=== PATIENT | female | born 1990 | race Caucasian/White ===

== ENCOUNTER 2022-01-12 08:02 | Day surgery (SDC) | payer OTHER, SELFPAY ==
[2022-01-12] VITALS (10 sets, daily range): BP systolic 113–158; BP diastolic 69–104; PULSE 63–78; RESP 16–18; TEMP 36.6–36.7; O2SAT 92–99; BMI 39.3
--- NOTE | 2022-01-12 | SEP_PTH ---
PATIENT: DREW LEE LOC: [facility] – [place] U#:[id number] AGE/SX: 31/F ROOM: RE01/12/[address]: Dr. Ramirez Leon MD : 1990 BED: DIS: 01/12/2022 SPEC #: [id number] RECD: 01/12/22 11:27 STATUS: CARLOS ROSY #: [id number] SHELDON: 01/12/22 00:[address]: Ramirez Leon DEPT: SURGICAL PATHOLOGY RECD BY: Zion Farris ENTERED: 01/12/22 11:45 SP TYPE: SEPTUM OTHR DR: NOEMY Plaza Tissues: A - Nasal septum, NOS B - Ethmoid sinus, NOS C - Ethmoid sinus, NOS Procedures: Decalcification bone/plaque Surgery Specimen Level III Surgery Specimen Level IV HEADER OPERATION: Endo, nasal, ethmoid, septoplasty PRE-OP DIAGNOSIS: Chronic sinusitis, chronic maxillary and ethmoid sinusitis, deviated nasal septum TISSUE SUBMITTED: A ? Septum and bone, B ? Left sinus contents, C ? Right sinus contents MICROSCOPIC DIAGNOSIS A. Septum and bone: Fragments of cartilage and bone, clinically deviated nasal septum. B. Left sinus contents: Fragments of respiratory mucosa with chronic inflammation and bone. C. Right sinus contents: Fragments of respiratory mucosa with chronic inflammation and bone. SUJIT:iggy 01/15/2022 MICROSCOPIC DESCRIPTION Slides are reviewed. GROSS DESCRIPTION A - Received in fixative is one container labeled with the patient's name and designated septum and bone. The specimen consists of multiple fragments of bone and cartilage that in aggregate measure 3 x 2 x 0.3 cm. The specimen is totally submitted in one cassette after decalcification. B - Received in fixative is one container labeled with the patient's name and designated left sinus contents. The specimen consists of multiple irregular fragments of lott-pink soft tissue mixed with possible fragments of bone that in aggregate measure 2.5 x 1 x 0.2 cm. The specimen is totally submitted in one cassette after decalcification. C - Received in fixative is one container labeled with the patient's name and designated right sinus contents. The specimen consists of multiple irregular fragments of hemorrhagic soft tissue mixed with possible fragments of bone that in aggregate measure 5 x 3 x 0.2 cm. The specimen is totally submitted in two cassettes after decalcification. / SUJIT:iggy 01/12/2022 TC:3 CPT: 83171 x2, 52846, 41654 x3
[2022-01-12] MEDS: Lactated Ringers 1,000 ML 15 ML IV ×2 (08:15→10:30)
[2022-01-12] MEDS: Oxymetazoline 0.05% 1 SPRAY SPRAY.BTL 2 SPRAY NASAL (08:35)
[2022-01-12 08:37] LABS: Internal QC Validated? YES +Cl - CLEAR BKGD; Pregnancy, Urine Negative Negative
--- NOTE | 2022-01-12 08:42 | DS.PCM_ITS ---
Providers Primary Care Physician: NOEMY Plaza Reason For Visit: ENDOSCOPIC ETHMOID MAX ANTROS SEPTO SHERLYN BILAT Medications at Discharge Home Medications albuterol 90 mcg INHALATION PRN PRN 01/06/22 alprazolam 0.5 mg PO PRN PRN 01/06/22 cetirizine-pseudoephedrine [Zyrtec-D] 1 tab PO BID 01/06/22 escitalopram oxalate [Lexapro] 15 mg PO DAILY 01/06/22 fluticasone furoate-vilanterol [Breo Ellipta] 1 inh INHALATION DAILY 01/06/22 fluticasone propionate [Flonase] 2 spray INTRANASAL BID 01/06/22 Weight / BMI Weight Weight: 104 kg Body Mass Index (BMI) 39.3 ABG / Lab / Microbiology Data Laboratory: Laboratory Results - last 24 hr 01/12/22 08:22: Urine Test Negative D/C Instructions Discharge Diet: No restrictions Additional Activity Instructions: No nose blowing. Start saline irrigation on 01/13/22. Irrigate 4x/day. Please Follow Up With: Ramirez Leon MD When: 8 days Meaningful Use Info Meaningful Use Diagnoses (Choose all that apply): None applicable Discharge Plan Admission Attending Provider: Ramirez Leon Primary Care Provider: Dari Dorman Discharge Orders/Prescriptions Prescriptions: No Action cetirizine-pseudoephedrine [Zyrtec-D] 5-120 mg Tablet Extended Release 12 Hr 1 tab PO BID RF: 0 albuterol 90 mcg/actuation Aerosol 90 mcg INHALATION PRN PRN (Reason: Wheezing) RF: 0 fluticasone propionate [Flonase] 50 mcg/actuation [place],Suspension 2 spray INTRANASAL BID RF: 0 escitalopram oxalate [Lexapro] 10 mg Tablet 15 mg PO DAILY RF: 0 fluticasone furoate-vilanterol [Breo Ellipta] 100-25 mcg/dose Blister With Device 1 inh INHALATION DAILY RF: 0 alprazolam 0.5 mg tablet 0.5 mg PO PRN PRN (Reason: Anxiety) RF: 0
[2022-01-12] MEDS: Mupirocin Ointment 22gm Tube 1 APPLIC (10:15)
[2022-01-12] MEDS: Oxymetazoline 0.05% 1 SPRAY SPRAY.BTL 15 SPRAY (10:15)
[2022-01-12] MEDS: Lidocaine 1% /Epi 1:100 (20ml) 20 ML Vial (10:15)
--- NOTE | 2022-01-12 10:52 | OP.PCM_ITS ---
Report of Operation Date of Procedure: 01/12/22 Pre-Operative Diagnosis: chronic sinusitis deviated septum Post-Operative Diagnosis: same Surgery/Procedure Performed:: bilateral total ethmoidectomy bilateral maxillary antrostomy septoplasty Surgeon: Ramirez Leon Type of Anesthesia: General Anesthesiologist: Al Leung Estimated Blood Loss (mL): 30 cc Description of Procedure: The patient was taken to the operating room on 01/12/2022. The patient was placed in the supine position on the operating table. The patient was given sufficient general endotracheal anesthesia. The head of bed was elevated 30 degrees. 0 and 30 degrees rigid nasal endoscopes were used throughout the entire case. The middle turbinate uncinate process and septum were injected with 1% lidocaine with epinephrine bilaterally. The left middle turbinate was medialized with a [place] Joseph elevator. A ball-tipped sinus seeker was placed into the patient's maxillary sinus. The maxillary antrostomy was created with a backbiter. The uncinate process was taken down using a microdebrider. Next, the ethmoid bulla was opened with a small curette. Anterior and posterior ethmoidectomy were then carried out using curette, sinus shaver and 45 degree Blakesley Nathalie forceps. I then placed Afrin pledgets into the sinonasal cavity. A right hemitransfixion incision was made with a 15 blade. The mucoperichondrial was elevated off of the left-hand side of the septum with a [place] Joseph elevator. An anterior and posterior tunnel were created in this fashion. The bony cartilaginous junction was with a [place] Joseph elevator. A posterior tunnel was created on the right side developed by elevating the mucoperichondrial with a [place] Joseph. The deviated portions of bony septum removed using open Mario-Eulalia forceps. Afrin was used for hemostasis as well as Dominga powder. The hemitransfixion incision was closed with 4-0 chromic. Next attention was turned to the right side. The middle turbinate was medialized with a [place] elevator. The uncinate process was taken down using a sinus shaver. In doing so, the maxillary antrostomy was created. The ethmoid bulla was opened with a small curette. Anterior posterior ethmoidectomy were then carried out using a sinus shaver curette and Blakesley Nathalie forceps. Hemostasis was then achieved using Afrin pledgets. The pledgets were then removed bilaterally and Dominga powder was applied bilaterally for absolute hemostasis. Krishna nasal splints were applied to each side of the septum and sewn through and through with 3-0 silk.The procedure was then terminated. The patient was then awoken and brought to the recovery room in stable condition blood loss less than 30 cc replacement none. Sponge, needle, instrument count were correct at the end of the procedure.
[2022-01-12] MEDS: HYDROcodone Bitartrate/Apap 5/325 Tablet PO (13:22)
== END 2022-01-12 14:09 | disposition home or self-care (01) ==
LOC: SDC 08:05 → AC 08:07
PROVIDERS: Anesthesiology; PCP Physician Assistant; Referring Provider Otolaryngology; Visit Provider Otolaryngology
PROC: (CPT 30520; principal; 2022-01-12 09:00)
DX: J32.8 Other chronic sinusitis (principal); J34.2 Deviated nasal septum; J32.0 Chronic maxillary sinusitis; J32.2 Chronic ethmoidal sinusitis; F41.9 Anxiety disorder, unspecified; J45.909 Unspecified asthma, uncomplicated; Z79.899 Other long term (current) drug therapy
CPT/HCPCS: 31255; 31267; 30520; 00160; 81025; 88304; 88305; 88311; J7120; J2405

== ENCOUNTER 2022-07-16 08:43 | Day surgery (SDC) | payer OTHER, SELFPAY ==
--- NOTE | 2022-07-15 15:18 | PCM.HP.BLA ---
History and Physical Date of Admission: 07/16/22 Pre-Op History and Physical ? HPI: The patient is a 32 year old female presenting for discussion regarding AUB. Was on ocps- wishes to stop and Mirena IUD not covered and too expensive at this time- does not wish to continue with hormonal therapy. Would like to consider surgical intervention. ? pre-operative visit. She is scheduled for Hysteroscopy D&C and Quin ablation, for AUB on 07/16/22. Procedure discussed along with risks, benefits and complications. Other alternatives discussed for management. Consent form signed? Yes. ? ? PAST MEDICAL HISTORY PAST MEDICAL HISTORY Diagnosis Date ? Abnormal Pap smear of cervix 2009 ? Asthma ? ? SPORTS INDUCED ? Varicosities ? ? ? PAST SURGICAL HISTORY PAST SURGICAL HISTORY Procedure Laterality Date ? APPENDECTOMY ? ? ? AND REMOVAL OF PORTION OF SMALL INTESTINE ? DELIVERY ONLY ? 01/18/13 ? failed induction ? MYRINGOTOMY ASPIR&/EUSTACHIAN TUBE NFLTJ ANES ? ? ? Myringotomy/tubesX2 ? TONSILLECTOMY PRIMARY/SECONDARY <AGE 12 ? ? ? Tonsillectomy ? TUBAL LIGATION, ? ? ? done at time of section ? ? ? CURRENT MEDICATIONS Current Outpatient Medications Medication Sig Dispense Refill ? fluoxetine HCl (PROZAC ORAL) Take by mouth. ? ? ? Drospirenone-Ethinyl Estradiol (SKYLER, 28,) 3-0.03 mg per tablet Take 1 tablet by mouth once daily. (Patient not taking: Reported on 02/17/2022 ) 84 tablet 3 ? escitalopram oxalate (LEXAPRO) 10 mg tablet Take 10 mg by mouth once daily. (Patient not taking: Reported on 07/01/2022) ? ? ? fluticasone-vilanterol (BREO ELLIPTA) 100-25 mcg/dose inhaler Inhale 1 Inhalation as instructed once daily. 60 Each 11 ? cetirizine HCl (ZYRTEC ORAL) Take by mouth. ? ? ? ALPRAZolam (XANAX) 0.5 mg tablet take one-half to one tablet BY MOUTH TWICE DAILY FOR ANXIETY FOR 30 DAYS ? 0 ? albuterol (PROVENTIL) 2.5 mg /3 mL (0.083 %) nebulizer solution Use 3 mL via nebulizer four times daily. Inhale by nebulizer over 5-15 minutes 120 Vial 11 ? MONTELUKAST SODIUM (SINGULAIR ORAL) Take by mouth. (Patient not taking: Reported on 07/01/2022) ? ? ? albuterol HFA (PROAIR HFA) 90 mcg/actuation inhaler Inhale 2 Puffs as instructed. ? ? ? FLUTICASONE PROPIONATE (FLONASE NASAL) Use in the nose. ? ? ? No current facility-administered medications for this visit. ? ? ALLERGIES: Adhesive Tape (Rosins) and Amoxicillin ? PERSONAL HISTORY: SOCIAL HISTORY Social History ? Tobacco Use ? Smoking status: Never ? Smokeless tobacco: Never Vaping Use ? Vaping Use: Never used Substance Use Topics ? Alcohol use: Yes ? ? Comment: occasional ? Drug use: No ? FAMILY HISTORY: FAMILY HISTORY FAMILY HISTORY Problem Relation Age of Onset ? Thyroid Mother ? ? Hypertension Father ? ? Thyroid Maternal Grandmother ? ? Arthritis Paternal Grandfather ? ? Stroke Paternal Grandfather ? ? other (ilcerative colitis) Paternal Grandfather ? ? Breast Cancer Paternal Grandmother ? ? Thyroid Maternal Aunt ? ? ? REVIEW OF SYMPTOMS: negative except as noted above PHYSICAL EXAMINATION: ? VITALS: Blood pressure 122/80, weight 228 lb (103.4 kg), last menstrual period 06/25/2022. ? GENERAL: The patient is well nourished, well hydrated in no acute distress. , The patient is oriented to time, place, and person. NECK: full range of motion ? ? IMPRESSION: 32yo with AUB declining further hormonal treatment ? PLAN: Hysteroscopy, D&C, Quin ablation ? Pt has been counseled on risks/benefits and alternatives of surgery including but not limited to anesthesia, bleeding, infection, uterine perforation with subsequent injury to pelvic structures including bowel, bladder, ureters and vessels. Possible thermal injury. Pt wishes to proceed with surgery at this time. Reviewed possible ablation failure and need for future surgical intervention ? Pre and post op instructions reviewed ? I have reviewed and updated past medical and surgical history, medications and allergies Carmen Mayorga MD Office Visit on 07/01/2022 Office Visit on 07/01/2022 Note shared with patient
[2022-07-16] VITALS (7 sets, daily range): BP systolic 106–119; BP diastolic 64–80; PULSE 56–68; RESP 14–16; TEMP 36.3–36.8; O2SAT 95–100; BMI 39.7
--- NOTE | 2022-07-16 | EMB_PTH ---
PATIENT: DREW LEE LOC: [facility] [place] U#:[id number] AGE/SX: 32/F ROOM: RE07/16/[address]: Dr. Carmen Padgett, MDDOB: 1990 BED: DIS: 07/16/2022 SPEC #: [id number] RECD: 07/16/22 13:13 STATUS: CAROLS ROSY #: [id number] SHELDON: 07/16/22 00:[address]: Carmen Padgett DEPT: SURGICAL PATHOLOGY RECD BY: Zion Farris ENTERED: 07/16/22 13:13 SP TYPE: ENDOM BX/C ALICIA DR: NOEMY Plaza Tissues: Endometrium, NOS Procedures: Surgery Specimen Level IV HEADER OPERATION: Hysteroscopy, D & C Quin PRE-OP DIAGNOSIS: Abnormal uterine bleeding TISSUE SUBMITTED: Endometrial curettings MICROSCOPIC DIAGNOSIS Endometrial curettings: Secretory endometrium. SJ:iggy 07/17/2022 MICROSCOPIC DESCRIPTION Slides are reviewed. GROSS DESCRIPTION Received in fixative is one container labeled with the patient's name and designated endometrial curettings. The specimen consists of multiple fragments of hemorrhagic soft tissue that in aggregate measure 3 x 2.5 x 0.3 cm. The specimen is totally submitted in one cassette. / SUJIT:iggy 07/16/2022 TC:4 CPT: 44619
[2022-07-16 09:28] LABS: Internal QC Validated? YES +Cl - CLEAR BKGD; Pregnancy, Urine Negative Negative
[2022-07-16 09:39] LABS: Hematocrit 38.8 % (37-47); Hemoglobin 12.2 g/dL (12.0-15.0); Mean Corp Hgb Conc 31.4 g/dL (32-36); Mean Corpuscular Hgb 25.2 pg (27.0-32.0); Mean Corpuscular Volume 80.2 fL (81-99); Mean Platelet Vol. 10.2 fl (6.2-12.0); Platelet Count 286 K/mm3 (150-450); RBC Distribution Width CV 14.5 % (11.6-14.6); RBC Distribution Width SD 42.1 fl (35.1-43.9); Red Blood Count 4.84 M/mm3 (4.2-5.4); White Blood Count 7.4 K/mm3 (4.4-11.0)
[2022-07-16] MEDS: Lactated Ringers 1,000 ML 15 ML IV (09:41)
--- NOTE | 2022-07-16 10:04 | EX.PCM.DISCH ---
Discharge Instructions Procedure D&C Diet Discharge Diet: No restrictions Activity May resume sexual activity in: 1 week Dressing / Incision Call your doctor if you observe: Fever of 101 or Higher, Inability to urinate, Using more than 1 pad per hour and Uncontrolled pain Follow Up Care Please Follow Up With: Carmen Padgett MD When: 1-2 weeks post OP if you need an appointment please call [phone] Test Results: Test results from this visit will be discussed in further detail at your follow-up appointment, if applicable. Discharge Plan Admission Attending Provider: Carmen Padgett Primary Care Provider: Dari Dorman Discharge Orders/Prescriptions Prescriptions: No Action cetirizine-pseudoephedrine [Zyrtec-D] 5-120 mg Tablet Extended Release 12 Hr 1 tab PO BID albuterol 90 mcg/actuation Aerosol 90 mcg INHALATION PRN PRN (Reason: Wheezing) fluticasone propionate [Flonase] 50 mcg/actuation [place],Suspension 2 spray INTRANASAL BID fluticasone furoate-vilanterol [Breo Ellipta] 100-25 mcg/dose Blister With Device 1 inh INHALATION DAILY alprazolam 0.5 mg tablet 0.5 mg PO PRN PRN (Reason: Anxiety) fluoxetine [Prozac] 10 mg Capsule 10 mg PO DAILY Referrals / Follow Up: Dari Dorman PA [Primary Care Provider] - Disposition Disposition (needs filled in before D/C Order can be placed): Home, Self Care
--- NOTE | 2022-07-16 10:43 | PCM.OPRPT ---
Report of Operation Date of Procedure: 07/16/22 Pre-Operative Diagnosis: AUB Post-Operative Diagnosis: Same Surgery/Procedure Performed:: Hysteroscopy, D&C, quin Endometrial Ablation Description of Surgical Findings:: First Quin endometrial ablation gave air code 006 and 002, Quin endometrial ablation rep was here and a second device was opened the second device worked after resetting the cavity to 5.5 cm instead of 6 cm and at 2 28 seconds the device failed with error code 002 at this time decision was made to abort the procedure. Hysteroscope was then reinserted and the tissue appeared to be white which is consistent with ablated tissue. Decision was made to not open a new device and not proceed with the further 28 seconds. Cavity appeared to be intact. Surgeon: Carmen Padgett Type of Anesthesia: MAC Specimen's removed: endometrial curettings Estimated Blood Loss (mL): 5cc Fluids Replaced: 1000 Description of Procedure: After informed consent was obtained patient taken to the operating room she is placed in supine position she is given anesthesia simply self insert she is prepped draped normal sterile fashion. Bladder was drained prior to the start of the procedure. At this time the weighted speculum was placed the posterior fornix of the vagina then a single-tooth tenaculum was used to grasp the anterior lip of the cervix. At this time the uterus was sounded to approximately 10 cm the endocervical canal sounded to 4 cm. Next cervix was dilated in incremental fashion. Once adequate dilatation was achieved the hysteroscope was inserted using normal saline as distention medium. On hysteroscopy there were no gross abnormalities. Both tubal ostia were visualized. At this time sharp curettage was performed which yielded small amount of endometrial tissue. tissue will be sent to pathology for evaluation. At this time the Quin device was opened. The Quin was set at 6cm. The device was activated. Prior to activation the field test was performed and cavity was intact. The device failed with error code 006 and 002. Quin rep is here decision for opening a new device. The device also failed and so at this time decision was made to change the cavity length 5.5 cm and at this time the device did activate. Upon activation the device made it to 28 seconds left and then error code 002 was noted. At this time procedure was stopped and decision was made to perform hysteroscopy. Upon hysteroscopy it appeared that the tissue was ablated it appeared white and charred. No further ablation was performed. The cavity appeared to be intact. the tenaculum was removed. Good hemostasis was appreciated. Weighted speculum was removed. Vaginal sweep was performed is negative. There were no complications. Anticipated normal postoperative course for this patient. Instrument and lap count were correct ?2. Grafts/Implants Used: none Procedure Start Time: 10:14 Procedure Stop Time: 10:42 Complications quin failed at 28 seconds left Admit VTE Documentation VTE Present on Admission: Yes VTE Mechan Device Prophylaxis: SCD's VTE Pharm Prophylaxis ordered?: No Reason prophylaxis not ordered:: Procedure Not Indicated
== END 2022-07-16 12:04 | disposition home or self-care (01) ==
LOC: SDC 08:47 → AC 08:48
PROVIDERS: PCP Physician Assistant; Referring Provider Obstetrics & Gynecology; Visit Provider Obstetrics & Gynecology
PROC: 0U5B8ZZ Destruction of Endometrium, Via Natural or Artificial Opening Endoscopic (ICD-10-PCS; CPT 58558; principal; 2022-07-16 10:00)
DX: N93.9 Abnormal uterine and vaginal bleeding, unspecified (principal); Z79.899 Other long term (current) drug therapy; Z53.8 Procedure and treatment not carried out for other reasons
CPT/HCPCS: 58563; 00952; 81025; 85027; 88305; J7120; J2405

== ENCOUNTER → 2023-05-18 | Outpatient (CLI) | payer OTHER, SELFPAY ==
--- NOTE | 2023-05-18 09:10 | NEURO_ITS ---
NCS and/or EMG Patient Report Ordering Doctor: Dari Dorman DATE OF SERVICE: 05/18/23 Clinical Summary: 33 year old left handed female presenting with complaints of numbness and tingling in both hands. This EMG/NCS was performed to evaluate for right and left carpal tunnel syndrome. Nerve Conduction Studies Summary: The median-D2 SNAP distal latency was prolonged bilaterally. The left ulnar-D5 SNAP distal latency was prolonged. The median-APB CMAP distal latency was prolonged bilaterally with reduced amplitude on the left side. Needle Examination Summary: There was a higher proportion of motor unit action potentials with reduced recru itment, increased amplitude, increased duration, and polyphasia in the left abductor pollicis brevis muscle. Impression: There is electrodiagnostic evidence of the following - 1) Severe, left median mononeuropathy at the wrist (carpal tunnel syndrome), with secondary motor fiber axonal loss 2) Moderate, right median mononeuropathy at the wrist (carpal tunnel syndrome), with motor fiber demyelination Multi Select Codes Neurology Neurology Interp Codes: 54323-54 Musc test done w/n test comp (interp) (2) and 39494-14 Nrv cndj test 9-10 studies (interp)
== END | disposition home or self-care (01) ==
LOC: PSN 08:24
PROVIDERS: PCP Physician Assistant; Referring Provider Physician Assistant; Visit Provider Physician Assistant
DX: G56.03 Carpal tunnel syndrome, bilateral upper limbs (principal)
CPT/HCPCS: 95886; 95911

== ENCOUNTER 2023-07-08 16:16 | Emergency (ER) | payer OTHER, SELFPAY ==
[2023-07-08 16:17] VITALS: BP 138/80; PULSE 147; RESP 20; TEMP 36.8; O2SAT 98; BMI 39.4
--- NOTE | 2023-07-08 16:38 | US_ITS ---
Complete duplex pelvic sonogram CLINICAL INDICATION: Pain TECHNIQUE: Duplex pelvic sonography was performed in sagittal and axial projections utilizing transabdominal and transvaginal techniques FINDINGS: Uterus measures 11.5 x 4.7 x 3.8 cm. Endometrial lining is 5 mm in thickness and hyperechoic. Right ovary measures 3.1 x 2.4 x 1.7 cm and demonstrates arterial flow.. There is no dominant cyst or solid nodule. Left ovary measures 2.9 x 3.5 x 3.8 cm and demonstrates normal arterial flow. There is a cyst measuring 1.9 x 3.1 x 3.1 cm. Mild free fluid in the cul-de-sac. US/Transvaginal Non- IMPRESSION: Left ovarian cyst measuring 1.9 x 3.1 x 3.1 cm without evidence for ovarian torsion. Mild fluid in the cul-de-sac which may be on the basis of recent ovulation. Electronically Signed: Massimo Quintero MD at 18:36 EST ,
--- NOTE | 2023-07-08 16:39 | EDS_ITS ---
HPI HPI - Female History of Present Illness Chief Complaint: Female C/O Narrative Narrative: 33-year-old female presents with sudden onset of pelvic pain that began at around 3:00 in the afternoon. She states that she had a bowel movement, and now has pelvic pain, and gets sharp pain in the vaginal area up to the rectum. She denies any vaginal bleeding as she has had uterine ablation in the past. She had similar episode like this in the past where she had a bowel movement, then sudden on pain and was diagnosed with a hemorrhagic cyst. She and her states that they were at [place] when this happened over a year ago, when they thought maybe she had an ovarian torsion because of the same radiating pain, and pelvic pain, and took her to surgery but only found a hemorrhagic cyst. She rarely has menstrual periods because of her uterine ablation. She presents with the same pain that she has had when she had a ruptured ovarian cyst. [facility] Medical History Anemia Anxiety Asthma History of IBS Low iron Non-smoker Wears contact lenses Wears glasses Home Medications albuterol 90 mcg/actuation aerosol inhaler 90 mcg inhalation PRN PRN Wheezing 01/06/22 [History Last Taken Unknown] alprazolam 0.5 mg tablet 0.5 mg PO PRN PRN Anxiety 01/06/22 [History Last Taken Unknown] cetirizine 5 mg-pseudoephedrine ER 120 mg tablet,extended release,12hr (Zyrtec- D) 1 tab PO BID 01/06/22 [History Last Taken Unknown] fluticasone furoate 100 mcg-vilanterol 25 mcg/dose inhalation powder (Breo Ellipta) 1 inh inhalation DAILY 01/06/22 [History Last Taken Unknown] fluticasone propionate 50 mcg/actuation nasal spray,suspension 2 spray intranasal BID 01/06/22 [History Last Taken Unknown] fluoxetine 10 mg capsule (Prozac) 10 mg PO DAILY 07/09/22 [History Last Taken 07/16/22] ibuprofen 800 mg tablet 800 mg PO Q8H PRN pain #30 tabs 07/08/23 [Rx Last Taken Unknown] Allergy/AdvReac Type Severity Reaction Status Date / Time adhesive AdvReac Rash Verified 07/08/23 16:17 Surgical History History of appendectomy History of History of laparoscopy History of sinus surgery History of tonsillectomy and adenoidectomy Social History Smoking Status: Never smoker ROS ROS ED ROS Narrative Constitutional: No fever, no chills. HEENT: No sore throat. No neck pain. No loss of vision. No rhinorrhea. Cardiovascular: No chest pain. No palpitations. No pedal edema. Respiratory: No cough, no shortness of breath. Abdominal: Positive pelvic/abdominal pain. No nausea. No vomiting. Genitourinary: No dysuria. No hematuria. Musculoskeletal: No myalgias. No arthralgias. Neurologic: No headaches. No dizziness. No lightheadedness. Skin: No rash. No change in color. Psychiatric: No depression. No anxiety. EXAM Physical Exam Narrative Exam Narrative: Afebrile. Vital signs noted. HEENT: Normocephalic. Atraumatic. PERRL, EOMI. Neck soft and supple. No point tenderness or step off. Cardiovascular: Regular rate and rhythm. No murmurs, rubs, or gallops appreciated. Respiratory: No tachypnea. Lungs clear to auscultation bilaterally. Gastrointestinal: Abdomen soft, diffuse suprapubic tenderness with normoactive bowel sounds. No rebound or guarding. Neurological: Awake. Alert. Nonfocal, nonlateralizing. Skin: No rash. Normal color. No pallor. Musculoskeletal: No pedal edema. Full range of motion extremities. Const Vital Signs: 07/08/23 16:17 Temperature 98.2 F Temperature Source Temporal Pulse Rate 147 H Respiratory Rate 20 H Blood Pressure 138/80 H Blood Pressure Mean 99 Pulse Ox 98 Oxygen Delivery Method Room Air MDM MDM MDM Narrative Medical decision making narrative: In the differential diagnosis is ovarian cyst rupture versus torsion unlikely given. Appendicitis is not in the differential because she has had appendectomy remotely. She was given morphine and ondansetron for analgesia. I do feel ultrasound is indicated to look at flow to bilateral ovaries. Serum test will be obtained but anticipate will be negative secondary to ablation and lack of menstrual periods. I will obtain a CBC and CMP as well. Initially, she would not tolerate examination. She required multiple doses of medication including morphine, 1 mg of Dilaudid, 1 mg of Ativan, and she finally was able to relax after Toradol 30 mg intravenously. Initially she was refusing ultrasound. I reviewed her laboratory work and she has normal white count of 9.3, hemoglobin 12.5, hematocrit 37.7, platelet count normal at 256, sodium slightly low at 134 which I think is nonspecific, BUN of 19 and normal creatinine of 0.87. Glucose appropriately elevated at 133 with a normal anion gap of 7. Urinalysis is negative for infection. I do not feel that antibiotics are indicated. test is negative. Hence I feel ectopic has been ruled out. I reviewed the ultrasound results which shows that there is a left ovarian cyst but no evidence of torsion in either ovary. There is a small amount of free fluid in the pelvis thought to be from recent ovulation. At this point in time, I will defer pelvic examination as she may be having more muscle spasms of the pelvic floor which was causing her pain. As Toradol was the thing that c ontrolled her pain the most I do not feel opiate pain medication is indicated. I feel she be discharged to follow-up with her primary care physician and/or [employer] [facility]. Return instructions to the emergency department were reviewed. Patient and are agreeable to the plan. She was given a note to be off work tomorrow and a prescription written for ibuprofen 800 mg. Disposition is discharged home in stable condition. History & Record Review Discussion w/independent historian: Patient Lab Data Attestation: I reviewed the patient's lab results. Labs: Laboratory Results - last 24 hr 07/08/23 07/08/23 07/08/23 16:33 17:14 18:25 WBC 9.3 RBC 4.67 Hgb 12.5 Hct 37.7 MCV 80.7 L MCH 26.8 L MCHC 33.2 RDW Std Deviation 38.5 RDW Coeff of Jalen 13.2 Plt Count 256 MPV 9.8 Immature Gran % (Auto) 0.300 Neut % (Auto) 67.8 Lymph % (Auto) 21.2 Crane % (Auto) 7.4 Eos % (Auto) 2.9 Baso % (Auto) 0.4 Absolute Neuts (auto) 6.3 Absolute Lymphs (auto) 1.97 Nucleated RBC % 0 Sodium 134 L Potassium 3.7 Chloride 105 Carbon Dioxide 22.0 Anion Gap 7 BUN 19 H Creatinine 0.87 Estim Creat Clear Calc 78.68 Est GFR (MDRD) Af Amer 96 Est GFR (MDRD) Non-Af 79 BUN/Creatinine Ratio 21.9 H Glucose 133 H Calcium 9.7 Total Bilirubin 0.40 AST 11 L ALT 19 Alkaline Phosphatase 57 Total Protein 8.2 Albumin 4.0 Globulin 4.2 Albumin/Globulin Ratio 1.0 Serum , Qual NEGATIVE Urine Color Straw Urine Clarity Clear Urine pH 7.0 Ur Specific [place] 1.005 Urine Protein Negative Urine Glucose (UA) Normal Urine Ketones Negative Urine Occult Blood Negative Urine Nitrite Negative Urine Bilirubin Negative Urine Urobilinogen Normal Ur Leukocyte Esterase 25 H Urine RBC 0 SEEN Urine WBC 0 SEEN Ur Squamous Epith Cells 0-5 SEEN Urine Bacteria RARE Urine Mucus 0 SEEN Radiography Diagnostic Testing: Clinical Impression(s) from Imaging Studies Transvaginal US 07/08/23 16:38 IMPRESSION: Left ovarian cyst measuring 1.9 x 3.1 x 3.1 cm without evidence for ovarian torsion. Mild fluid in the cul-de-sac which may be on the basis of recent ovulation. Electronically Signed: Massimo Quintero MD at 18:36 EST Reading Location ID and State: [address] [place] [address] Tel , Service support , Discharge Plan Triage Chief Complaint: Female C/O ED Provider: Yuan Johnston Dx/Rx/DC Orders Clinical Impression: Pelvic pain, Lower abdominal pain Instructions: ED Abdominal Pain Unkn Cause Fem, ED Pelvic Pain, Unknown Cause Prescriptions: New ibuprofen 800 mg tablet 800 mg PO Q8H PRN (Reason: pain) Qty: 30 0RF No Action cetirizine-pseudoephedrine [Zyrtec-D] 5-120 mg Tablet Extended Release 12 Hr 1 tab PO BID albuterol 90 mcg/actuation Aerosol 90 mcg INHALATION PRN PRN (Reason: Wheezing) fluticasone propionate [Flonase] 50 mcg/actuation [place],Suspension 2 spray INTRANASAL BID fluticasone furoate-vilanterol [Breo Ellipta] 100-25 mcg/dose Blister With Device 1 inh INHALATION DAILY alprazolam 0.5 mg tablet 0.5 mg PO PRN PRN (Reason: Anxiety) fluoxetine [Prozac] 10 mg Capsule 10 mg PO DAILY Stand Alone Forms: ED Work / School Excuse Primary Care Provider: Dari Dorman Referrals: Dari Dorman, PA [Primary Care Provider] - 1-2 Days if not improving Disposition Disposition: Home, Self Care
[2023-07-08] MEDS: Ondansetron 4 MG/2 ML Vial IV (16:54)
[2023-07-08] MEDS: 0.9% Normal Saline (1000mL) 1,000 ML 1000 ML IV (16:54)
[2023-07-08] MEDS: Morphine 4 MG/ML Syringe IV (16:54)
[2023-07-08 17:08] LABS: AST(SGOT) 11 U/L (15-37); Alanine Aminotransfer ALT/SGPT 19 U/L (13-56); Alkaline Phosphatase 57 U/L (45-117); Anion Gap 7 (5-15); BUN 19 mg/dL (7-18); BUN/Creat Ratio 21.9 RATIO (10-20); Calcium,Total 9.7 mg/dL (8.5-10.1); Chloride 105 mmol/L (98-107); Creatinine, Serum 0.87 mg/dL (0.55-1.02); EST Glomerular Filtration Rate 79 mL/min (>60); Est Glom Filt Rate - Afr Amer 96 mL/min (>60); Estimated Creatinine Clearance 78.68 ml/min; Globulin 4.2 g/dL (2.2-4.2); Glucose 133 mg/dL (74-106); Potassium 3.7 mmol/L (3.5-5.1); Protein, Total 8.2 g/dL (6.4-8.2); Sodium Level 134 mmol/L (136-145)
[2023-07-08] MEDS: HYDROmorphone 1 MG/ML Syringe IV (17:11)
[2023-07-08 17:13] LABS: Internal QC Validated? YES +Cl - CLEAR BKGD; Pregnancy, Serum, hCG Quali. NEGATIVE Negative
[2023-07-08 17:25] LABS: Absolute Lymphocyte Count 1.97 X10^3/uL (0.83-4.51); Absolute Neutrophil Count 6.3 X10^3/uL (2.0-7.7); Basophil# 0.04 X10^3/uL; Basophil% 0.4 % (0-1); Eosinophil# 0.27 X10^3/uL; Eosinophils% 2.9 % (0-5); Hematocrit 37.7 % (37-47); Hemoglobin 12.5 g/dL (12.0-15.0); Lymphocyte # 1.97 X10^3/ul (0.83-4.51); Lymphocyte % 21.2 % (19-41); Mean Corp Hgb Conc 33.2 g/dL (32-36); Mean Corpuscular Hgb 26.8 pg (27.0-32.0); Mean Corpuscular Volume 80.7 fL (81-99); Mean Platelet Vol. 9.8 fl (6.2-12.0); Monocyte# 0.69 X10^3/uL; Monocyte% 7.4 % (0-10); NRBC Flagged by Analyzer 0 % (0-5); Neutrophil # 6.28 X10^3/uL (2.7-7.7); Neutrophil % 67.8 % (47-70); Platelet Count 256 K/mm3 (150-450); RBC Distribution Width CV 13.2 % (11.6-14.6); RBC Distribution Width SD 38.5 fl (35.1-43.9); Red Blood Count 4.67 M/mm3 (4.2-5.4); White Blood Count 9.3 K/mm3 (4.4-11.0)
[2023-07-08] MEDS: LORazepam 2 MG/ML Syringe 1 MG IV (17:48)
[2023-07-08 18:37] LABS: Mucous, Urine 0 SEEN /hpf (<or=2+); Red Blood Cells-Urine 0 SEEN /hpf (0-5); White Blood Cells 0 SEEN /hpf (0-5)
[2023-07-08 18:38] LABS: Color, Urine Straw (Yellow); Glucose, Dipstick Normal (Normal); Ketone-Dipstick Negative (Negative); Leukocyte Esterase-Dipstick 25 /ul (Negative); Nitrite-Dipstick Negative (Negative); Occult Blood-Urine Negative /ul (Negative); Protein-Dipstick Negative (Negative); Specific Gravity, Urine 1.005 (1.002-1.030); Urine Bilirubin Dipstick Negative (Negative); Urine Clarity Clear (Clear); Urine Urobilinogen Normal (Normal)
[2023-07-08 18:48] LABS: Bacteria RARE /hpf (None Seen); Squamous Epithelial Cells - UA 0-5 SEEN /hpf (5-10)
[2023-07-08] MEDS: Ketorolac 30 MG/ML Syringe IV (18:56)
[2023-07-08 19:59] VITALS: BP 121/75
== END 2023-07-08 20:08 | disposition home or self-care (01) ==
PROVIDERS: Emergency Provider Emergency Medicine; PCP Physician Assistant; Visit Provider Emergency Medicine
DX: R10.2 Pelvic and perineal pain (principal); N83.202 Unspecified ovarian cyst, left side; J45.909 Unspecified asthma, uncomplicated; Z90.49 Acquired absence of other specified parts of digestive tract
CPT/HCPCS: 76830; 80053; 81001; 84703; 85025; 96361; 96374; 96375; 99283; J7030; A4216; J2405